=== PATIENT | male | born 1970 | race Caucasian/White ===

== ENCOUNTER 2020-06-23 07:39 | Emergency (ER) | payer OTHER, SELFPAY ==
[2020-06-23 07:46] VITALS: BP 129/95; PULSE 102; RESP 16; TEMP 36.7; O2SAT 97; BMI 30.7
[2020-06-23 07:54] VITALS: RESP 16; O2SAT 96
--- NOTE | 2020-06-23 08:00 | ED_ITS ---
HPI - Back Pain/Injury General: Chief Complaint: Back Pain/Injury Stated Complaint: Lower back pain Time Seen by Provider: 06/23/20 07:43 History of Present Illness: HPI Narrative: Patient is a 49-year-old male comes to the ED with lower back pain radiates down his left leg. Patient says symptoms have been going on for about a week and a half. Denies any acute trauma or injury to cause back pain. Pain rated a 10 out of 10. Patient says he has had this pain in the past. Patient also complaining of having a sebaceous cyst on his back that has been there for many years but it starting to become painful. Denies any bladder or bowel incontinence, lower extremity weakness or pelvic anesthesia. Associated symptoms: Deny abdominal pain, chills, dysuria, fatigue, fever(s), hematuria, nausea or vomiting Review of Systems Const: Denies: fever(s), chills or fatigue Eyes: Denies: change in vision or eye discomfort ENMT: Denies: throat pain, odynophagia, nasal discharge or nasal congestion Card: Denies: chest pain, palpitations, edema, swelling of feet/ankles, dyspnea on exertion or orthopnea Resp: Denies: dyspnea, productive cough or non-productive cough GI: Denies: abdominal pain, nausea, vomiting, diarrhea, constipation or hematochezia : Denies: flank pain, difficulty urinating, dysuria or hematuria Musc: Reports: back pain (Left lower back with pain rating down left leg.); Denies: neck pain or extremity swelling Skin/Breast: Reports: changing lesions (Sebaceous cyst that he has had for many years?is now started become painful); Denies: rash Neuro: Denies: headache(s), numbness in extremities or weakness in extremities Physical Exam Const: COMMON NORMALS: no acute distress, patient oriented x3 and alert GENERAL APPEARANCE: cooperative and comfortable HENMT: COMMON NORMALS: normocephalic HEAD & SCALP: normocephalic MOUTH: Normal oral and palatal mucosa present THROAT: posterior oropharynx normal and uvula midline Neck/C-Spine: COMMON NORMALS: supple GENERAL: Yes normal visual inspection Resp: COMMON NORMALS: normal respiratory effort, No retractions, No use of accessory muscles and clear to auscultation bilaterally AUSCULTATION: clear to auscultation bilaterally Cardio: COMMON NORMALS: regular rate, regular rhythm, S1 normal heart sound present, S2 normal heart sound present, No gallops present (Cardio), No clicks present (Cardio), No murmurs present (Cardio) and Peripheral pulses 2+ throughout RATE: regular rate RHYTHM: regular rhythm HEART SOUNDS: S1 normal heart sound present and S2 normal heart sound present PERIPHERAL PULSES: Peripheral pulses 2+ throughout GI: COMMON NORMALS: Normal to inspection, nondistended, normoactive bowel sounds present, Soft to palpation, non-tender and no masses PALPATION: Yes Soft to palpation : COMMON NORMALS: Yes no CVA tenderness BLADDER/KIDNEY EXAM: Yes no CVA tenderness Back/Pelvis: COMMON NORMALS: no CVA tenderness LUMBAR SPINE/LOWER BACK: No lumbar spinal tenderness and Yes paraspinal muscle tenderness Lumbar paraspinal muscle tenderness: left Extremity: COMMON NORMALS: normal to inspection Neuro: COMMON NORMALS: patient oriented x3 and moves all extremities SENSORIUM/ORIENTATION: Yes alert Skin: NARRATIVE SKIN EXAM: Sebaceous cyst on mid back. It is tender upon palpation and there is erythema and warmth of the skin over the cyst. No v isible drainage seen. Cyst size approximately 2.5 cm.--Findings suggestive of infected sebaceous cyst. GENERAL SKIN EXAM: dry skin Procedures Abscess I/D Site: back (Sebaceous cyst) Side (if applicable): right Sedation/analgesia: none Local Anesthetic: lidocaine 1% and with epi Amount of anesthesia used (mL): 10 Technique: incised with #11 blade Amount of fluid expressed (mL): 10 (Malodorous cyst drainage.) Irrigation: Yes Packing used?: none (Incision site left open to allow for continual drainage.) Course Vital Signs: Vital signs: Vital Signs Temperature 98.0 F 06/23/20 07:46 Pulse Rate 91 06/23/20 09:26 Respiratory Rate 18 06/23/20 09:26 Blood Pressure 149/95 06/23/20 09:26 Pulse Oximetry 96 06/23/20 09:26 MDM - Back Pain/Injury MDM Narrative: Medical decision making narrative: Patient is a 49-year-old male comes to the ED with lumbar radiculopathy and sebaceous cyst on back. Patient has no cauda equina symptoms. Sebaceous cyst had some erythema tenderness and warmth and I&D was performed and cyst was removed. Incision site was irrigated and left open to allow for any continual drainage. Patient was discharged home on a prescription of Bactrim, Robaxin, meloxicam, Medrol Dosepak and [place] 5/325 tablets 8 tablets. Return to ED precautions given. Follow-up with PCP in 7 to 10 days. Patient understood and agree with plan. Discharge Plan Discharge Patient Disposition: Home Clinical Impression: Lumbar radiculopathy, Infected sebaceous cyst Condition: Stable Prescriptions: New Bactrim DS 800-160 mg tablet 1 tab PO BID 7 Days Qty: 14 RF: 0 Medrol (Tam) 4 mg tablets,dose pack See Rx Instructions .ROUTE .COMPLEX Qty: 21 RF: 0 methocarbamol 750 mg tablet 750 mg PO Q8H Qty: 20 RF: 0 meloxicam 15 mg tablet 15 mg PO DAILY Qty: 20 RF: 0 Discharge Orders: Discharge ED (Routine); Ordered 06/23/20 Ordered By: Bentley Crockett Discharge Diet: Regular Discharge Activity: Increase activity as tolerated Patient Instructions: Lumbar Radiculopathy (ED), Opioid Safety Activity Restrictions/Additional Instructions: Follow-up with medical provider as directed in 7 to 10 days reevaluation. Take medications as prescribed. Keep sebaceous cyst site clean and covered with bandage to allow wound to drain and heal from the inside out. Apply ice pack or heat on lower back to help with symptoms. Stretch lower back daily as well. Return to the ER or your medical provider if condition worsens. Please read and understand discharge instructions. If any questions, please ask. Coding Level of Care Code ED Central Office Equipment Installer for Cal Fwd Exam Comprehensive
[2020-06-23] MEDS: predniSONE 20 mg Tablet 60 MG PO (08:14)
[2020-06-23] MEDS: HYDROcodone-acetaminophen 7.5-325 mg Tablet 1 TAB PO (08:14)
[2020-06-23 09:26] VITALS: BP 149/95; PULSE 91; RESP 18; O2SAT 96
== END 2020-06-23 09:26 | disposition home or self-care (01) ==
PROVIDERS: Emergency Provider Physician Assistant
DX: M54.16 Radiculopathy, lumbar region (principal); L72.3 Sebaceous cyst
CPT/HCPCS: 99283; J7512

== ENCOUNTER 2020-07-31 11:21 | Outpatient (CLI) | payer OTHER, SELFPAY ==
--- NOTE | 2020-07-31 11:26 | MR_ITS ---
WS: [id number] MRI LUMBAR SPINE NONCONTRAST HISTORY: LUMBAR BACK PAIN W/RADICULOPATHY;LT LOWER LEG MUSCLE ATROPHY COMPARISON: None available. TECHNIQUE: Sagittal and axial multisequence imaging is submitted. Mild straightening of the cervical lordosis and thoracic kyphosis. Mild disc bulging throughout the c ervical and thoracic spine. No high-grade central stenosis. Straightening of the normal lumbar lordosis. There is very slight LEFT curvature of the lumbar spine. No acute fracture. Moderate disc desiccation at L4-5 and L5-S1 with osteophytic ridging around the L 4 and L5 vertebral bodies. Most significant disc desiccation is at the L4-5 level with adjacent endplate changes which are chron ic. Conus terminates normally at L1-2 disc level. L1-L2: Diffuse annular disc bulge. There is also osteophytic ridging. Asymmetric encroachment upon th e RIGHT lateral thecal sac. Mild narrowing of the RIGHT subarticular recess and RIGHT foramen. L2-L3: Mild annular disc bulging and osteophytic ridging. Annular fissure in the far lateral LEFT for amen. Mild bilateral foraminal and lateral recess stenosis due to disc disease. Slightly greater sten osis on the LEFT. L3-L4: Diffuse annular disc bulging and mild osteophytic ridging. Mild ligamentum flavum hypertrophy. Mild bilateral foraminal stenosis, LEFT greater than RIGHT. L4-L5: Moderate diffuse annular disc bulging and osteophytic ridging. Focal central disc protrusion c ontacting the ventral thecal sac. Moderate LEFT and mild RIGHT foraminal stenosis. There is also mild central stenosis with encroachment upon the L5 nerve roots bilaterally. L5-S1: Mild annular disc bulging and osteophytic ridging. Moderate facet joint arthritis. Severe LEFT and moderate RIGHT foraminal stenosis. MR/MR lumbar spine wo con* [id number] IMPRESSION: 1. Severe LEFT foraminal stenosis at L5-S1 and moderate on the RIGHT. 2. Moderate LEFT and mild RIGHT foraminal stenosis at L4-5. Mild central steno sis with mild disc encroachment upon the L5 nerve roots bilaterally. 3. Mild RIGHT foraminal subarticular recess stenosis at L1-2. 4. Mild bilateral foraminal and lateral recess stenosis at L2-3. 5. Mild bilateral foraminal stenosis, LEFT greater than RIGHT at L3-4. 6. Severe degenerative disc disease at L4-5 and L5-S1.
== END 2020-07-31 11:22 | disposition home or self-care (01) ==
LOC: RADSHAW 11:25
PROVIDERS: Visit Provider Family Medicine
DX: M54.16 Radiculopathy, lumbar region (principal); M62.562 Muscle wasting and atrophy, not elsewhere classified, left lower leg; M48.07 Spinal stenosis, lumbosacral region; M48.061 Spinal stenosis, lumbar region without neurogenic claudication; M51.36 Other intervertebral disc degeneration, lumbar region; M51.37 Other intervertebral disc degeneration, lumbosacral region
CPT/HCPCS: 72148

== ENCOUNTER → 2020-08-13 15:22 | Outpatient (BNVA) | payer OTHER, SELFPAY | PROVIDERS: Referring Provider Family Medicine; Visit Provider Orthopaedic Surgery | DX: M47.896 Other spondylosis, lumbar region (principal); M54.5 Low back pain | CPT/HCPCS: 72110 ==

== ENCOUNTER 2020-08-21 10:25 | Outpatient (RCR) | payer OTHER, SELFPAY | END 2020-09-16 23:59 | disposition home or self-care (01) | LOC: SPT 10:25 | PROVIDERS: Referring Provider Orthopaedic Surgery; Visit Provider Orthopaedic Surgery | DX: M54.5 Low back pain (principal) | CPT/HCPCS: 97110; 97162; G0283 ==

== ENCOUNTER 2020-09-17 06:00 | Outpatient (RCR) | payer OTHER, SELFPAY | END 2020-10-16 23:59 | disposition home or self-care (01) | LOC: SPT 06:00 | PROVIDERS: Referring Provider Orthopaedic Surgery; Visit Provider Orthopaedic Surgery | DX: M54.5 Low back pain (principal) | CPT/HCPCS: 97110 ==

== ENCOUNTER 2021-10-11 17:19 | Emergency (ER) | payer OTHER, SELFPAY ==
[2021-10-11 17:52] VITALS: BP 128/87; PULSE 103; RESP 20; TEMP 37.6; O2SAT 97; BMI 27.1
--- NOTE | 2021-10-11 21:05 | XRR_ITS ---
PROCEDURE INFORMATION: Exam: XR Right Foot Exam date and time: 10/11/2021 9:22 PM Age: 51 years old Clinical indication: Pain; Foot; Right; Additional info: Fifth toe injury TECHNIQUE: Imaging protocol: Radiologic exam of the Right foot. Views: 3 or more views. COMPARISON: No relevant prior studies available. FINDINGS: Bones/joints: Normal. Soft tissues: Normal. XR/XR foot RT min 3V* [id number] IMPRESSION: No acute findings.
--- NOTE | 2021-10-11 21:35 | ED_ITS ---
Documented by User: [email or web address] Dinh 10/13/21 10:43 HPI - Extremity Problem General: Chief complaint: Extremity Injury, Lower Stated complaint: Toe on right foot turning colors Time Seen by Provider: 10/11/21 21:04 History of Present Illness: Patient is a 51-year-old male comes to the ED with right fifth toe injury. Patient states that approximately 1 month ago he stubbed his pinky toe. He went and saw his PCP twice for injury. X-ray of the foot was never done. He is continued to have pain and swelling in the fifth toe. He was started on clindamycin at his last PCP visit because I thought there is likely an infection. The bottom side of his fifth toe is black and he reports still having pain whenever he ambulates. Patient says couple weeks ago that black spot on his toe was present but it is continued to just get larger. Associated symptoms: Deny chest pain, fever(s) or rash Review of Systems Const: Denies: fever(s), chills or fatigue Eyes: Denies: change in vision or eye discomfort ENMT: Denies: throat pain, odynophagia, nasal discharge or nasal congestion Card: Denies: chest pain, palpitations, edema, swelling of feet/ankles, dyspnea on exertion or orthopnea Resp: Denies: dyspnea, productive cough or non-productive cough GI: Denies: abdominal pain, nausea, vomiting, diarrhea, constipation or hematochezia : Denies: flank pain, difficulty urinating, dysuria or hematuria Musc: Reports: extremity pain (Right foot fifth toe) and extremity swelling (Right foot fifth toe); Denies: neck pain or back pain Skin/Breast: Reports: changes in skin color (Black skin on right 5th toe); Denies: rash or new lesions Neuro: Denies: headache(s), numbness in extremities or weakness in extremities PFSH ED PFSH: Medical History No pertinent family history Surgical History No pertinent past surgical history Social History Smoking and tobacco status: never smoked Physical Exam Const: COMMON NORMALS: no acute distress, patient oriented x3 and alert GENERAL APPEARANCE: cooperative and comfortable HENMT: COMMON NORMALS: normocephalic HEAD & SCALP: normocephalic MOUTH: Normal oral and palatal mucosa present THROAT: posterior oropharynx normal and uvula midline Neck/C-Spine: COMMON NORMALS: supple GENERAL: Yes normal visual inspection Resp: COMMON NORMALS: normal respiratory effort, No retractions, No use of accessory muscles and clear to auscultation bilaterally AUSCULTATION: clear to auscultation bilaterally Cardio: COMMON NORMALS: regular rate, regular rhythm, S1 normal heart sound present, S2 normal heart sound present, No gallops present (Cardio), No clicks present (Cardio), No murmurs present (Cardio) and Peripheral pulses 2+ throughout RATE: regular rate RHYTHM: regular rhythm HEART SOUNDS: S1 normal heart sound present and S2 normal heart sound present PERIPHERAL PULSES: Peripheral pulses 2+ throughout GI: COMMON NORMALS: Normal to inspection, nondistended, normoactive bowel sounds present, Soft to palpation, non-tender and no masses PALPATION: Yes Soft to palpation : COMMON NORMALS: Yes no CVA tenderness BLADDER/KIDNEY EXAM: Yes no CVA tenderness Back/Pelvis: COMMON NORMALS: no CVA tenderness Extremity: NARRATIVE EXTREMITY EXAM: Right foot?fifth digit has some erythema and mild swelling. The skin on the plantar pad region of distal fifth digit has black necrotic tissue. Findings suggestive of a dry gangrene. Mild tenderness to palpation. No redness or swelling in foot or red streaking seen in right lower extremity. Neuro: COMMON NORMALS: patient oriented x3 and moves all extremities SENSORIUM/ORIENTATION: Yes alert Skin: GENERAL SKIN EXAM: dry skin Course Vital Signs: Vital signs: Vital Signs Temperature 99.7 F H 10/11/21 17:52 Pulse Rate 103 H 10/11/21 17:52 Respiratory Rate 20 H 10/11/21 17:52 Blood Pressure 128/87 10/11/21 17:52 Pulse Oximetry 97 10/11/21 17:52 MDM - Extremity (Nontraumatic) Medical Decision Making Patient is a 51-year-old male comes to the ED with right fifth toe injury. Patient states that approximately 1 month ago he stubbed his pinky toe. He went and saw his PCP twice for injury. X-ray of the foot was never done. He is continued to have pain and swelling in the fifth toe. He was started on clindamycin at his last PCP visit because I thought there is likely an infection. Vitals are stable. Exam of patient's right foot fifth digit had some erythema and mild swelling. The skin on the plantar pad region of distal fifth digit has black necrotic tissue. Findings suggestive of a dry gangrene. Mild tenderness to palpation. No redness or swelling in foot or red streaking seen in right lower extremity. X-ray of foot shows no acute fractures or findings. Due to patient's clinical appearance I have think he likely does have a toe fracture and has developed some dry gangrene at the distal tip of toe. Patient was given a dose of IM Rocephin here in the ED. I placed an order with case management for patient to be referred to both wound care clinic to treat his dry gangrene of toe and to Dr. Burch the [employer] administrator for toe fracture. I was told to continue taking his prescribed clindamycin. Return to ED precautions given. Patient understood and agreed with plan. Lab Data Radiology Impressions Foot X-Ray 10/11/21 21:05 IMPRESSION: No acute findings. Discharge Plan Discharge Patient Disposition: Home Clinical Impression: Dry gangrene Fracture of toe of right foot Qualifiers: Encounter type: initial encounter Toe: lesser toe Fracture type: closed Phalanx: unspecified phalanx Fracture alignment: nondisplaced Qualified Code(s): S92.504A - Nondisplaced unspecified fracture of right lesser toe(s), initial encounter for closed fracture Condition: Stable Prescriptions: No Action hydrocodone-acetaminophen 5-325 mg tablet 1 tab PO Q6H PRN0RF celecoxib [Celebrex] 50 mg capsule 50 mg PO DAILY 0RF (DME) TENS 502 Device See Rx Instructions .Route Qty: 1 0RF Rx Instructions: As directed doxycycline hyclate 100 mg capsule 100 mg PO DAILY Qty: 28 0RF Medrol (Tam) 4 mg tablets,dose pack See Rx Instructions .ROUTE .COMPLEX Qty: 21 0RF Rx Instructions: orally per package directions methocarbamol 750 mg tablet 750 mg PO Q8H Qty: 20 0RF meloxicam 15 mg tablet 15 mg PO DAILY Qty: 20 0RF Discharge Orders: Discharge ED (Routine); Ordered 10/11/21 Ordered By: Bentley Crockett Discharge Diet: Regular Discharge Activity: Increase activity as tolerated Patient Instructions: Fractures - Phalanx (Toe), Gangrene (DC) Activity Restrictions/Additional Instructions: Follow-up with medical provider as directed. Use crutches to help with ambulation. ward assistant were contacting you next several days set up an appointment with Dr. Burch the [employer] administrator and wound care clinic. Continue taking antibiotic as previously prescribed. take medications as prescribed. Return to the ER or your medical provider if condition worsens. Please read and understand discharge instructions. Thank you for choosing [facility] for your healthcare needs today. Please realize this is an emergency room and that we are providing you with a medical screening exam and this may not be complete and all inclusive of all the testing and or work up that you may need to determine your ailment or severity of your illness. It is very important that you follow up as instructed or that you return to the Emergency Department should you have concerns or if your condition changes or worsens in any way. Coding Level of Care Code ED Slip Cover Cutter for Chg Fwd Exam Comprehensive Documented by User: Jacek Hernandez DO 10/13/21 23:21 HPI - Extremity Problem General: Chief complaint: Extremity Injury, Lower Stated complaint: Toe on right foot turning colors Time Seen by Provider: 10/11/21 21:04 [facility] ED PFSH: Medical History No pertinent family history Surgical History No pertinent past surgical history Social History Smoking and tobacco status: never smoked Course Vital Signs: Vital signs: Vital Signs Temperature 99.7 F H 10/11/21 17:52 Pulse Rate 103 H 10/11/21 17:52 Respiratory Rate 20 H 10/11/21 17:52 Blood Pressure 128/87 10/11/21 17:52 Pulse Oximetry 97 10/11/21 17:52 MDM - Extremity (Nontraumatic) Medical Decision Making Patient is a 51-year-old male comes to the ED with right fifth toe injury. Patient states that approximately 1 month ago he stubbed his pinky toe. He went and saw his PCP twice for injury. X-ray of the foot was never done. He is continued to have pain and swelling in the fifth toe. He was started on clindamycin at his last PCP visit because I thought there is likely an infection. Vitals are stable. Exam of patient's right foot fifth digit had some erythema and mild swelling. The skin on the plantar pad region of distal fifth digit has black necrotic tissue. Findings suggestive of a dry gangrene. Mild tenderness to palpation. No redness or swelling in foot or red streaking seen in right lower extremity. X-ray of foot shows no acute fractures or findings. Due to patient's clinical appearance I have think he likely does have a toe fracture and has developed some dry gangrene at the distal tip of toe. Patient was given a dose of IM Rocephin here in the ED. I placed an order with case management for patient to be referred to both wound care clinic to treat his dry gangrene of toe and to Dr. Burch the [employer] administrator for toe fracture. I was told to continue taking his prescribed clindamycin. Return to ED precautions given. Patient understood and agreed with plan. This patient was originally seen by Mr. Keira PA-C. I agree with his history, evaluation, and treatment. Lab Data Radiology Impressions Foot X-Ray 10/11/21 21:05 IMPRESSION: No acute findings. Discharge Plan Discharge Patient Disposition: Home Clinical Impression: Dry gangrene Fracture of toe of right foot Qualifiers: Encounter type: initial encounter Toe: lesser toe Fracture type: closed Phalanx: unspecified phalanx Fracture alignment: nondisplaced Qualified Code(s): S92.504A - Nondisplaced unspecified fracture of right lesser toe(s), initial encounter for closed fracture Condition: Stable Prescriptions: No Action hydrocodone-acetaminophen 5-325 mg tablet 1 tab PO Q6H PRN0RF celecoxib [Celebrex] 50 mg capsule 50 mg PO DAILY 0RF (DME) TENS 502 Device See Rx Instructions .Route Qty: 1 0RF Rx Instructions: As directed doxycycline hyclate 100 mg capsule 100 mg PO DAILY Qty: 28 0RF Medrol (Tam) 4 mg tablets,dose pack See Rx Instructions .ROUTE .COMPLEX Qty: 21 0RF Rx Instructions: orally per package directions methocarbamol 750 mg tablet 750 mg PO Q8H Qty: 20 0RF meloxicam 15 mg tablet 15 mg PO DAILY Qty: 20 0RF Discharge Orders: Discharge ED (Routine); Ordered 10/11/21 Ordered By: Bentley Crockett Discharge Diet: Regular Discharge Activity: Increase activity as tolerated Patient Instructions: Fractures - Phalanx (Toe), Gangrene (DC) Activity Restrictions/Additional Instructions: Follow-up with medical provider as directed. Use crutches to help with ambulation. ward assistant were contacting you next several days set up an appointment with Dr. Burch the [employer] administrator and wound care clinic. Continue taking antibiotic as previously prescribed. take medications as prescribed. Return to the ER or your medical provider if condition worsens. Please read and understand discharge instructions. Thank you for choosing [facility] for your healthcare needs today. Please realize this is an emergency room and that we are providing you with a medical screening exam and this may not be complete and all inclusive of all the testing and or work up that you may need to determine your ailment or severity of your illness. It is very important that you follow up as instructed or that you return to the Emergency Department should you have concerns or if your condition changes or worsens in any way. Coding Level of Care Code ED Slip Cover Cutter for Cal Nix Exam Comprehensive
[2021-10-11] MEDS: cefTRIAXone 1,000 MG in lidocaine 1% 2.1 ML 1 MG IM (22:23)
--- NOTE | 2021-10-12 17:00 | PC.SOCIAL ---
Follow Ups Message sent to both podiatry and wound care clinics requesting follow up appointment. Clinic will call patient with appointment date/time.
--- NOTE | 2021-10-23 15:32 | DCPLANNER ---
Patient had a follow up appointment scheduled with Wound Care for 10.15.[address] Gay - patient did attend appointment. Patient had a follow up appointment scheduled with ortho for 10.13.21 with - patient did attend appointment.
== END 2021-10-11 22:43 | disposition home or self-care (01) ==
PROVIDERS: Emergency Provider Physician Assistant
DX: S92.504A Nondisplaced unspecified fracture of right lesser toe(s), initial encounter for closed fracture (principal); I96 Gangrene, not elsewhere classified; W22.8XXA Striking against or struck by other objects, initial encounter
CPT/HCPCS: 73630; 96372; 99284; J0696

== ENCOUNTER → 2021-10-16 11:58 | Outpatient (BNVA) | payer OTHER, SELFPAY | PROVIDERS: Visit Provider Family Medicine | DX: R73.9 Hyperglycemia, unspecified (principal); Z00.00 Encounter for general adult medical examination without abnormal findings; M51.36 Other intervertebral disc degeneration, lumbar region; F41.1 Generalized anxiety disorder | CPT/HCPCS: 80053; 80061; 83036; 84403; 85025 ==

== ENCOUNTER 2021-10-31 11:53 | Outpatient (CLI) | payer OTHER, SELFPAY ==
--- NOTE | 2021-10-31 12:00 | CT_ITS ---
WS: [id number] CT ANGIOGRAPHY OF THE ABDOMINAL AORTA WITH RUNOFF TO THE ANKLES HISTORY: sore to the right 5th toe TECHNIQUE: Arterial injection is performed during imaging to evaluate the aorta and runoff vessels to the ankles. MIP and volume rendering imaging has also been performed. All images are reviewed. All C T scans at [facility] use at least one of these dose optimization techniques: automated exposu re control; mA and/or kV adjustment per patient size (includes targeted exams where dose is matched t o clinical indication); or iterative reconstruction. Contrast: Omnipaque 350; 150 mL IV. DLP: 932.60 mGy.cm COMPARISON: None available. Lung bases are clear. Normal size heart. No hiatal hernia. Abdominal aorta: Very good opacification and enhancement of the aorta. No significant amount of plaqu e. There are a few scattered calcified foci with no obstruction. No aneurysm. Normal enhancement of t he celiac axis and SMA. Normal enhancement of the renal arteries and the TIFFANY. RIGHT lower extremity arterial system: RIGHT common, internal and external iliac arteries are patent. RIGHT femoral, SFA, deep profunda, popliteal artery and tibial peroneal trunk are intact. Small nael kary and intermittently visualized RIGHT peroneal artery to the foot. Anterior and posterior tibial ar teries are intact. LEFT lower extremity arterial system: Common, internal and external iliac arteries are patent. Femora l artery, SFA, deep profunda and popliteal arteries are all patent. SFA and popliteal artery are spain nt. Very small caliber arteries below the knee. Contrast is noted within the LEFT venous system. This is probably due to 2 separate injections of channing ious times. Liver, spleen, pancreas, gallbladder, adrenals and kidneys are negative for acute process. No adenopa thy or ascites. No GI tract obstruction. Well-distended urinary bladder. Prostate enlargement. CT/CT angio abd aorta runof [id number] IMPRESSION: 1. No significant aneurysm abdominal aorta. 2. Normal caliber arteries from the aortic bifurcation to the popliteal arteri es. 3. Below the knee the arteries become very small caliber. Intermittent visuali zation of the RIGHT peroneal artery to the foot.
[2021-10-31] MEDS: iohexol 350 mg/mL 100 mL Btl IV ×2 (14:24→14:25)
== END 2021-10-31 11:54 | disposition home or self-care (01) ==
PROVIDERS: Visit Provider Podiatrist Foot & Ankle Surgery
DX: S92.911A Unspecified fracture of right toe(s), initial encounter for closed fracture (principal); I96 Gangrene, not elsewhere classified; X58.XXXA Exposure to other specified factors, initial encounter
CPT/HCPCS: 75635

== ENCOUNTER → 2022-01-28 13:42 | Outpatient (BNVA) | payer OTHER, SELFPAY | PROVIDERS: PCP Family Medicine; Visit Provider Family Medicine | DX: E11.9 Type 2 diabetes mellitus without complications (principal); D64.9 Anemia, unspecified | CPT/HCPCS: 85025 ==

== ENCOUNTER → 2022-02-03 07:50 | Outpatient (BNVA) | payer OTHER, SELFPAY | PROVIDERS: PCP Family Medicine; Visit Provider Family Medicine | DX: E11.65 Type 2 diabetes mellitus with hyperglycemia (principal); F41.1 Generalized anxiety disorder; M51.36 Other intervertebral disc degeneration, lumbar region; Z00.00 Encounter for general adult medical examination without abnormal findings; D64.9 Anemia, unspecified | CPT/HCPCS: 80053; 80061; 82607; 83036; 84402; 85025 ==